=== PATIENT | male | born 1990 | race Caucasian/White ===

== ENCOUNTER 2023-01-17 15:23 | Emergency (ER) | payer OTHER ==
[~2023-01-17] VITALS: Ht 172.7 cm; Wt 136.1 kg
[2023-01-17 15:43] VITALS: BP 138/51; PULSE 74; RESP 18; TEMP 98; O2SAT 98
[2023-01-17] MEDS ORDERED: KETOROLAC 30 MG/ML VIAL IM ONE (17:15)
[2023-01-17] MEDS ORDERED: ACET-10509 PO (17:32)
[2023-01-17] MEDS ORDERED: IBUP-2213 PO (17:32)
== END 2023-01-17 18:37 | disposition home or self-care (01) ==
LOC: MED 15:23
DX: S83.91XA Sprain of unspecified site of right knee, initial encounter (principal); Z90.49 Acquired absence of other specified parts of digestive tract; X58.XXXA Exposure to other specified factors, initial encounter; Y92.89 Other specified places as the place of occurrence of the external cause; Y93.89 Activity, other specified; Y99.8 Other external cause status
CPT/HCPCS: 73562; 96372; 99283; J1885